=== PATIENT | male | born 1970 | race Native Hawaiian/Other Pacific Islander ===

== ENCOUNTER 2021-07-30 11:54 | Outpatient (CLI) | payer BC | END 2021-07-30 19:00 | disposition home or self-care (01) | LOC: RAD 11:54 | PROVIDERS: ATTEND Physician Assistant | DX: R06.02 Shortness of breath (principal) ==

== ENCOUNTER 2021-08-13 09:32 | Outpatient (CLI) | payer BC | END 2021-08-13 18:50 | disposition home or self-care (01) | LOC: US 09:32 | PROVIDERS: ATTEND Physician Assistant | DX: E04.9 Nontoxic goiter, unspecified (principal) ==